=== PATIENT | male | born 1985 | race Caucasian/White ===

== ENCOUNTER 2018-03-16 09:30 | Emergency (ER) | payer MEDICAID, OTHER ==
[~2018-03-16] VITALS: Ht 177.8 cm; Wt 73.0 kg
[2018-03-16 10:04] VITALS: BP 131/67
[2018-03-16 11:56] LABS: Hepatitis B Surface Antibody Positive
[2018-03-16 12:51] LABS: Hepatitis B Surface Antigen Negative (Negative)
== END 2018-03-16 11:06 | disposition home or self-care (01) ==
LOC: ER 09:37
DX: Z77.21 Contact with and (suspected) exposure to potentially hazardous body fluids (principal); F17.210 Nicotine dependence, cigarettes, uncomplicated
CPT/HCPCS: 36415; 86703; 86706; 86803; 87340